=== PATIENT | female | born 1985 | race Caucasian/White ===

== ENCOUNTER → 2016-09-24 | Outpatient (CLI) | payer MEDICAID ==
[~2016-09-24] MED LIST: CALC500T7 PO; CEPH500C; CEPH500C PO; DCS100C PO; HSCO125 SL; IBP800T PO; KETO10TA PO; METR500T21 PO; NAPR-243 PO; NITR-65 PO; ONDA4TAB8 PO; ONDA8TAB13 PO; ONDAN4ODT SL; OXYC1TAB12 PO; PREN1TAB25 PO; TAMS0.4C98 PO
--- NOTE | 2016-09-24 14:52 | Diagnostic Imaging Report ---
PROCEDURE: US PELVIC (NON OB) TECHNIQUE: Multiple real-time grayscale images were obtained over the pelvis in various projections transabdominally. IMPRESSION: Pelvic pain. FINDINGS: The previous pelvic ultrasound exam performed on 01/18/2016 noted that the endometrial lining was thickened and there were two anechoic sacs within the endometrial canal. The possibly that this was related to an early gestational sac was raised. On this exam, the uterus is nongravid, anteverted, and prominent measuring 9.3 x 8.0 x 4.1 cm. The endometrial lining is thickened measuring 12 mm (normal 5 mm or less). This finding is nonspecific, however. Correlation with the patient's menstrual cycle will be recommended. Both ovaries are identified. There is a 2.1 x 2.1 x 1.8 cm simple cyst arising from the left ovary. The right ovary is generally unremarkable. There is no solid pelvic mass or free fluid collection noted. IMPRESSION: 1. The uterus is prominent but nongravid. The endometrial lining is thickened, but this finding is nonspecific. Recommendations as above. 2. There is a 2.1 x 2.1 cm simple cyst associated with the left ovary. There is no acute pelvic abnormality noted otherwise. Dictated by: Dictated on workstation # [id number]
== END ==
LOC: RAD 11:19
PROVIDERS: ATTEND Obstetrics & Gynecology
DX: N83.202 Unspecified ovarian cyst, left side (principal); R10.2 Pelvic and perineal pain
CPT/HCPCS: 76856

== ENCOUNTER 2016-10-02 08:19 | Emergency (ER) | payer MEDICAID ==
[~2016-10-02] VITALS: Ht 149.9 cm; Wt 40.8 kg
--- NOTE | 2016-10-02 08:56 | ED Neck-Back Pain/Injury ---
General Chief Complaint: Head/Cervical Problems Stated Complaint: RT SIDE NECK PAIN Nursing Triage Note: PT STATES RT SIDE NECK PAIN OF UNKNOWN CAUSE THAT STARTED 3 DAYS AGO. Nursing Sepsis Screen: No Definite Risk Source of Information: Patient, Family Exam Limitations: No Limitations History of Present Illness Time Seen by Provider: 08:51 Initial Comments This 30-year-old white female presents with a complaint of right-sided neck and shoulder pain that has been present for the last 2 days. The patient denies any remote or recent injury to her head neck or right shoulder. Patient's pain is sharp in nature severe in intensity and located primarily over the right paracervical and supraspinatus area. There is no associated radiation of the pain. There is no numbness or tingling in the right arm. The patient denies associated chest pain, shortness of breath, cough, hemoptysis, palpitations, nausea vomiting or diarrhea. Patient states pain is made worse by head neck or right shoulder movement. Patient does not want a trigger injection. She does not want injectable pain medications. The patient has severe anxiety and had a specific request for the medicines that she knew she can take without difficulty which included hydrocodone and Flexeril and ibuprofen. Allergies and Home Medications Allergies Coded Allergies: NKANo Known Allergies (Verified Allergy, Unknown, 04/09/06) Home Medications Ketorolac Tromethamine 10 Mg Tablet, 10 MG PO Q6H, #15 Prescribed by: LEILANI REID on 11/14/15106 Metronidazole 500 Mg Tablet, 500 MG PO BID, #14 Prescribed by: ELISSA MCDANIEL on 01/18/16 1546 Nitrofurantoin Monohyd/M-Cryst 100 Mg Capsule, 100 MG PO BID, #20 Prescribed by: LEILANI REID on 11/14/15106 Ondansetron 4 Mg Tab.rapdis, 4 MG PO Q4H, #10 Prescribed by: LEILANI REID on 11/14/15106 Tamsulosin HCl 0.4 Mg Cap, 0.4 MG PO DAILY, #10 Prescribed by: LEILANI REID on 11/14/15106 Constitutional: No chills, No fever EENTM: No ear pain, No vision loss Respiratory: No cough Cardiovascular: No chest pain Gastrointestinal: No abdominal pain, No diarrhea, No nausea, No vomiting Genitourinary: No dysuria, No frequency Musculoskeletal: see HPI, No back pain, muscle pain (over the right trapezius area.), neck pain Skin: No rash Psychiatric/Neurological: Anxiety Past Edrgvww-Hbqvox-Hhcxiu Hx Patient Social History Alcohol Use: Denies Use Recreational Drug Use: No Smoking Status: Current Someday Smoker Type Used: Cigarettes Recent Foreign Travel: No Contact w/Someone Who Travel: No Recent Infectious Disease Expo: No Recent Hopitalizations: No Immunizations Up To Date Tetanus Booster (TDap): More than 5yrs Seasonal Allergies Seasonal Allergies: Yes Surgeries History of Surgeries: Yes ( X 2) Surgeries: Section Respiratory History of Respiratory Disorde: No Cardiovascular History of Cardiac Disorders: Yes (PALPATATIONS) Neurological History of Neurological Disord: No Reproductive System : No Last Menstrual Period: Sep 11, 2016 Hx Reproductive Disorders: No Sexually Transmitted Disease: No HIV/AIDS: No Female Reproductive Disorders: Denies Genitourinary History of Genitourinary Disor: No Gastrointestinal History of Gastrointestinal Di: No Musculoskeletal History of Musculoskeletal Dis: No Endocrine History of Endocrine Disorders: No HEENT History of HEENT Disorders: No Cancer History of Cancer: No Psychosocial History of Psychiatric Problem: Yes Behavioral Health Disorders: Anxiety Integumentary History of Skin or Integumenta: No Blood Transfusions History of Blood Disorders: No Reviewed Nursing Assessment Reviewed/Agree w Nursing PMH: Yes Family Medical History Significant Family History: No Pertinent Family Hx Family Medial History: Alcoholism 19 MOTHER G8 SISTER Arthritis 19 MOTHER Drug abuse 19 MOTHER G8 SISTER No Family History of: AIDS Alzheimer's disease Asthma Cancer of mouth Cardiovascular disease Cataracts Colon cancer Completed stroke Diabetes mellitus Dysphasia Glaucoma Hypertension Kidney disease Myocardial infarction Osteoporosis Parkinson's disease Prostate cancer Psychosocial problem Respiratory disorder Seizure disorder Severe allergy Thyroid disease Tuberculosis Visual disorder Physical Exam Vital Signs Vital Sign - Last 12Hours 10/02/16 08:29 Temp 98.5 Pulse 82 Resp 20 B/P (MAP) 116/81 Pulse Ox 100 O2 Delivery Room Air Capillary Refill : Less Than 3 Seconds General Appearance: Cachetic, Mild Distress HEENT: Normal ENT Inspection Neck: Normal Inspection Cardiovascular: Regular Rate, Rhythm, No Murmur Respiratory: Chest Non Tender, Lungs Clear, Normal Breath Sounds Gastrointestinal: Normal Bowel Sounds Back: Normal Inspection Extremity: Normal Capillary Refill, Normal Range of Motion (other than to the right shoulder from the myalgias and muscle spasm.), Other (there is tenderness to palpation over the right trapezius area suggestive of a trigger point. Movement of the head neck and right shoulder exacerbate the pain.) Neurologic/Psychiatric: Alert, Oriented x3, No Motor/Sensory Deficits Skin: Normal Color, Warm/Dry Progress/Results/Core Measures Results/Orders My Orders Orders - RICKI JACOBS MD Shoulder, Right, 2 Views (10/02/16 08:48) Hydrocodone/Apap 5/325 Tablet (Lortab 5 (10/02/16 09:00) Cyclobenzaprine Tablet (Flexeril Tablet) (10/02/16 09:00) Ibuprofen Tablet (Motrin Tablet) (10/02/16 09:00) Cervical Spine 3 Views Or Less (10/02/16 08:48) Medications Given in ED Current Medications Medications Dose Ordered Sig/Guerrero Route Start Time Stop Time Status Last Admin Dose Admin Acetaminophen/ Hydrocodone Bitart 2 tab ONCE ONCE PO 10/02/16 09:00 10/02/16 09:01 DC 10/02/16 09:20 1 TAB Ibuprofen 600 mg ONCE ONCE PO 10/02/16 09:00 10/02/16 09:01 DC 10/02/16 09:20 600 MG Vital Signs/I&O Vital Sign - Last 12Hours 10/02/16 08:29 Temp 98.5 Pulse 82 Resp 20 B/P (MAP) 116/81 Pulse Ox 100 O2 Delivery Room Air Blood Pressure Mean: 93 Progress Note : Time: 11:23 Progress Note The patient's x-rays of the cervical spine and right shoulder were unremarkable. Patient was significantly improved with hydrocodone and ibuprofen orally. I discussed findings with the patient who will use hydrocodone, ibuprofen, and Flexeril at home. I recommended rest moist heat and an pjil-wdf-qoayflr electric stimulator for supplemental treatment. I recommended that she follow up with her primary care provider on Wednesday. She was invited to return to the emergency department if she having further problems. Departure Impression Impression: Primary Impression: Neck pain Disposition: HOME, SELF-CARE Condition: Improved Departure-Patient Inst. Decision time for Depature: 11:25 Referrals: NADINE OCHOA DO (PCP/Family) Primary Care Physician Patient Instructions: Generalized Neck Pain (DC) Add. Discharge Instructions: Flexeril, ibuprofen, and Vicodin as prescribed. Moist heat and/or ice to the neck area. Jvsu-pbx-kpjevnn electric stimulator to the right shoulder area. Close follow-up at [facility] on Wednesday. Return if any problems. All discharge instructions reviewed with patient and/or family. Voiced understanding. RICKI JACOBS MD Oct 02, 2016 08:56
[2016-10-02] MEDS: IBUPROFEN 600 MG (MOTRIN) TAB PO ONE (09:20)
[2016-10-02] MEDS: CYCLOBENZAPRINE 10 MG (FLEXERIL) TAB PO SCH (09:20)
[2016-10-02] MEDS: HYDROcodone/APAP 5 MG/325 MG (LORTAB) TAB PO ONE (09:20)
--- NOTE | 2016-10-02 10:12 | Diagnostic Imaging Report ---
INDICATION: Right shoulder pain AP internal and external rotated views of the right shoulder are obtained. No fracture or dislocation is seen. There is no acute bony abnormality. IMPRESSION: Negative right shoulder. Dictated by: Dictated on workstation # [id number]
--- NOTE | 2016-10-02 10:21 | Diagnostic Imaging Report ---
Indication: Right-sided neck pain radiating to the right shoulder and arm. Discussion: Four views of the cervical spine were obtained. Intervertebral disc spaces are well-maintained. No significant facet arthropathy. Alignment is anatomic. Paraspinal soft tissues are unremarkable. Impression: 1. Negative cervical spine. Dictated by: Dictated on workstation # [id number]
[2016-10-02 11:39] VITALS: BP 112/80
== END 2016-10-02 11:38 | disposition home or self-care (01) ==
LOC: EDUNIT# 08:19 → ER 08:21
DX: M54.2 Cervicalgia (principal); F41.9 Anxiety disorder, unspecified; F17.210 Nicotine dependence, cigarettes, uncomplicated; Z87.59 Personal history of other complications of pregnancy, childbirth and the puerperium
CPT/HCPCS: 72040; 73030; 99283

== ENCOUNTER 2018-11-08 17:45 | Emergency (ER) | payer SELFPAY ==
[~2018-11-08] VITALS: Ht 149 cm; Wt 40.0 kg
[~2018-11-08 17:45] MED LIST changes: +AMOX-358 PO; +METR-145 PO; -METR500T21 PO; +NAPR-1071 PO
[2018-11-08] MEDS ORDERED: TRAM-42 PO (18:05)
--- NOTE | 2018-11-08 18:05 | ED EENT ---
History of Present Illness General Chief Complaint: Dental Problems/Pain Stated Complaint: TOOTHACHE Nursing Triage Note: THE PT IS AMBULATORY TO THE ROOM WITHOUT DIFFICULTY. NO DISTRESS IS SEEN ON ARRIVAL. LOC IS NORMAL FOR THE PT. Source: patient Exam Limitations: no limitations History of Present Illness Date Seen by Provider: Nov 08, 2018 Time Seen by Provider: 18:01 Initial Comments To ER with left lower dental pain for the past 4 years worse for the past few days. She is about 8 or 9 weeks , was seen by [facility] and started on Augmentin yesterday. She took 2 doses yesterday and 1 today, denies much improvement. She's been taking Tylenol and ibuprofen without much relief. Timing/Duration: other Severity: moderate Location: dental Prearrival Treatment: no prearrival treatment Associated Symptoms: denies symptoms Allergies and Home Medications Allergies Coded Allergies: KIERANANo Known Allergies (Verified Allergy, Unknown, 04/09/06) Home Medications Amoxicillin/Potassium Clav 1 Each Tablet, 1 EACH PO BID Prescribed by: BRIANNA RAMOS on 06/24/171716 Ketorolac Tromethamine 10 Mg Tablet, 10 MG PO Q6H Prescribed by: LEILANI REID on 11/14/15106 Metronidazole 500 Mg Tablet, 500 MG PO BID Prescribed by: ELISSA MCDANIEL on 01/18/16 154 Naproxen 500 Mg Tablet, 500 MG PO BID PRN PRN for PAIN-MODERATE Prescribed by: BRIANNA RAMOS on 06/24/171716 Nitrofurantoin Monohyd/M-Cryst 100 Mg Capsule, 100 MG PO BID Prescribed by: LEILANI REID on 11/14/15106 Ondansetron 4 Mg Tab.rapdis, 4 MG PO Q4H Prescribed by: LEILANI REID on 11/14/15106 Tamsulosin HCl 0.4 Mg Cap, 0.4 MG PO DAILY Prescribed by: LEILANI REID on 11/14/15106 Patient Home Medication List Home Medication List Reviewed: Yes Review of Systems Review of Systems Constitutional: see HPI Eyes: No Symptoms Reported Ears: No Symptoms Reported Nose: no symptoms reported Mouth: see HPI, pain; denies swelling Throat: no symptoms reported Respiratory: no symptoms reported Cardiovascular: no symptoms reported Musculoskeletal: no symptoms reported Skin: no symptoms reported Neurological: No Symptoms Reported Hematologic/Lymphatic: No Symptoms Reported Immunological/Allergic: no symptoms reported Past Wiolese-Lxunkx-Hktqqx Hx Patient Social History Type Used: Cigarettes 2nd Hand Smoke Exposure: No Recent Foreign Travel: No Contact w/Someone Who Travel: No Recent Infectious Disease Expo: No Recent Hopitalizations: No Physical Abuse: No Sexual Abuse: No Mistreated: No Fear: No Immunizations Up To Date Tetanus Booster (TDap): More than 5yrs Seasonal Allergies Seasonal Allergies: No Past Medical History Surgeries: No Section Respiratory: No Cardiac: Yes (PALPATATIONS) Neurological: No Reproductive Disorders: No Female Reproductive Disorders: Denies Sexually Transmitted Disease: No HIV/AIDS: No Genitourinary: No Gastrointestinal: No Musculoskeletal: No Endocrine: No HEENT: No Cancer: No Psychosocial: Yes Anxiety Integumentary: No Blood Disorders: No Family Medical History Alcoholism 19 MOTHER G8 SISTER Arthritis 19 MOTHER Drug abuse 19 MOTHER G8 SISTER No Family History of: AIDS Alzheimer's disease Asthma Cancer of mouth Cardiovascular disease Cataracts Colon cancer Completed stroke Diabetes mellitus Dysphasia Glaucoma Hypertension Kidney disease Myocardial infarction Osteoporosis Parkinson's disease Prostate cancer Psychosocial problem Respiratory disorder Seizure disorder Severe allergy Thyroid disease Tuberculosis Visual disorder No Pertinent Family Hx Physical Exam Vital Signs Vital Signs - First Documented 11/08/18 17:55 Temp 36.8 Pulse 80 Resp 14 B/P (MAP) 123/83 (96) Height, Weight, BMI Height: 5'0" Weight: 100lbs. oz. [id number]; 18.00 BMI Method:Estimated General Appearance: WD/WN, no apparent distress Eyes: bilateral eye normal inspection, bilateral eye PERRL, bilateral eye EOMI Nose: normal inspection, active bleeding Mouth/Throat: other (the tooth in question is carious and fractured. There is n o surrounding fluctuance to suggest a drainable abscess no mandibular or maxillary swelling.) Neck: non-tender Respiratory: no respiratory distress, no accessory muscle use Gastrointestinal: normal bowel sounds, non tender Neurologic/Psychiatric: alert, normal mood/affect, oriented x 3 Progress/Results/Core Measures Results/Orders My Orders Orders - BRIANNA RAMOS APRN Tramadol Tablet (Ultram Tablet) (11/08/18 18:00) Vital Signs/I&O 11/08/18 17:55 Temp 36.8 Pulse 80 Resp 14 B/P (MAP) 123/83 (96) Blood Pressure Mean: 96 Departure Communication (Admissions) That she is allergic to codeine, doesn't want hydrocodone, has taken Tylenol and ibuprofen without much relief, offered her a inferior alveolar nerve block which she declined, no seizure history so I'll give a couple of Ultram. She has the Augmentin with her Impression Primary Impression: Dental caries Disposition: HOME, SELF-CARE Condition: Stable Departure-Patient Inst. Decision time for Depature: 18:04 Referrals: NO,LOCAL PHYSICIAN (PCP) Primary Care Physician NADINE OCHOA DO (Family) Primary Care Physician Patient Instructions: Dental Pain (DC) Add. Discharge Instructions: 1. Continue the Augmentin, this is a very good antibiotic better than amoxicillin or penicillin alone. Pain medication as directed follow-up with your dentist ERIC All discharge instructions reviewed with patient and/or family. Voiced understanding. Scripts Tramadol HCl (Ultram) 50 Mg Tablet 50 MG PO Q6H PRN for PAIN-SEVERE, #10 TAB Prov: BRIANNA RAMOS APRN 11/08/18 BRIANNA RAMOS APRN Nov 08, 2018 18:05
[2018-11-08 18:14] VITALS: BP 123/83
[2018-11-08] MEDS ORDERED: LIDOCAINE 2% VISCOUS 15 ML UDC MM ONE (18:15)
== END 2018-11-08 18:18 | disposition home or self-care (01) ==
LOC: EDUNIT# 17:45 → ER 17:47
DX: K02.9 Dental caries, unspecified (principal); F41.9 Anxiety disorder, unspecified
CPT/HCPCS: 99283

== ENCOUNTER → 2019-01-30 | Outpatient (CLI) | payer MEDICAID ==
[~2019-01-30] MED LIST changes: +TRAM-42 PO
--- NOTE | 2019-01-30 13:43 | Diagnostic Imaging Report ---
INDICATION: survey. TECHNIQUE: Multiple real-time grayscale images were obtained over the gravid uterus. COMPARISON: None FINDINGS: There is a single living intrauterine in breech presentation. There is normal volume in the axilla. Placenta is anterior. There is no previa. Anatomical survey is unremarkable. This includes a four-chamber heart and three-vessel cord. Heart rate is 132 bpm. Biometrical measurements are as follows: Biparietal 5.25 cm, age 22 weeks 0 days. Head circumference 19.39 cm, age 21 weeks 5 days. Abdominal circumference 14.98 cm, age 20 weeks 2 days. Femur length 3.34 cm, age 20 weeks 4 days. Sonographic estimate age: 21 weeks 1 days. Sonographic estimated date of delivery: 06/11/2019. Estimated Weight: 359 gm (+/- 52 gm). LMP percentile: 16%. heart rate: 132 beats per minute. number: 1 of 1. IMPRESSION: Single living intrauterine with sonographically estimated gestational age of 21 weeks 1 day and estimated date of confinement of June 11, 2019. Dictated by: Dictated on workstation # [id number]
== END ==
LOC: RAD 10:03
PROVIDERS: ATTEND Nurse Practitioner Women's Health
DX: Z36.89 Encounter for other specified antenatal screening (principal); Z3A.21 21 weeks gestation of pregnancy
CPT/HCPCS: 76805

== ENCOUNTER 2019-04-04 18:29 | Outpatient (CLI) | payer MEDICAID ==
[~2019-04-04] VITALS: Ht 149.9 cm; Wt 53.0 kg
[~2019-04-04 18:29] MED LIST changes: -TAMS0.4C98 PO; +TMSL.4C PO
--- NOTE | 2019-04-04 18:35 | NUR ---
MATTEO RANDALL presented to unit via from ED, accompanied by s/o, with c/o CONTRACTIONS. MATTEO RANDALL weighed, gowned, voided, and to bed. EFHM and TOCO applied, VS taken. MATTEO RANDALL oriented to bed controls, call light, TV, heat, and A/C controls.
[2019-04-04 18:57] VITALS: BP 117/69
[2019-04-04 18:57] LABS: BILIRUBIN,URINE NEGATIVE (NEGATIVE); CLARITY,URINE CLEAR; COLOR,URINE YELLOW; GLUCOSE, URINE (UA) NEGATIVE (NEGATIVE); KETONES,URINE NEGATIVE (NEGATIVE); LEUKOCYTE ESTERASE ,URINE 1+ (NEGATIVE); NITRITE,URINE NEGATIVE (NEGATIVE); PROTEIN,URINE NEGATIVE (NEGATIVE)
[2019-04-04 19:09] LABS: BACTERIA,URINE FEW /HPF; SQUAMOUS EPITHELIAL CELL,UR RARE /HPF; WBC,URINE RARE /HPF
[2019-04-04] MEDS ORDERED: PREN-142 PO (19:20)
[2019-04-04] MEDS ORDERED: FERR-84 PO (19:20)
[2019-04-04 19:25] VITALS: BP 100/63
--- NOTE | 2019-04-04 19:35 | NUR ---
dr. louie called regarding pt's arrival and complaints and SVE. New orders received for iv fluids and terb. Pt ctx's palpate mild and pt is able to talk and text through ctx's.
--- NOTE | 2019-04-04 19:44 | NUR ---
Discussed plan of care with pt and friend. pt states has high anxiety and does not want a shot or iv. pt states she is "freaking out" thinking about it and would rather go home and hydrate and see dr. stock tomorrow at scheduled appointment. RN discussed the reasoning of iv fluids and terb. Rn also discussed the risk of labor if pt would cont to contract. Pt verbalized understanding but refuses the ivfluids and terb. Dr. louie called and made aware, pt to sign out AMA.
[2019-04-04] MEDS ORDERED: LACTATED RINGERS 1,000 ML IV SCH (19:45)
[2019-04-04] MEDS ORDERED: TERBUTALINE INJ 1 MG/ML (BRETHINE) AMP SC ONE (19:45)
--- NOTE | 2019-04-04 19:48 | NUR ---
pt sitting up on side of bed. Pt dc'd from external monitors.
--- NOTE | 2019-04-04 19:50 | NUR ---
AMA paper discussed with pt and pt signed and understands.
[2019-04-04 19:55] VITALS: BP 100/63
--- NOTE | 2019-04-04 19:55 | NUR ---
Pt ambulated off unit.
== END 2019-04-04 19:55 | disposition left against medical advice (07) ==
LOC: WSo 18:29 → LDRP 18:30 → WSo 19:55
PROVIDERS: ATTEND Obstetrics & Gynecology
DX: O60.00 Preterm labor without delivery, unspecified trimester (principal); Z3A.00 Weeks of gestation of pregnancy not specified
CPT/HCPCS: 81000; 87088; 99213

== ENCOUNTER 2019-05-12 04:02 | Outpatient (CLI) | payer MEDICAID ==
[~2019-05-12] VITALS: Ht 149.9 cm; Wt 56.2 kg
[~2019-05-12 04:02] MED LIST changes: +FERR-84 PO; +PREN-142 PO
--- NOTE | 2019-05-12 04:05 | NUR ---
MATTEO RANDALL presented to unit via AMBULATION from HOME/ED, accompanied by SO, with c/o CONTRACTIONS. MATTEO RANDALL weighed, gowned, voided, and to bed. EFHM and TOCO applied, VS taken. MATTEO RANDALL oriented to bed controls, call light, TV, heat, and A/C controls.
[2019-05-12 04:17] VITALS: BP 123/77
[2019-05-12 04:19] VITALS: BP 123/77
[2019-05-12 04:51] LABS: BILIRUBIN,URINE NEGATIVE (NEGATIVE); CLARITY,URINE CLEAR; COLOR,URINE YELLOW; GLUCOSE, URINE (UA) NEGATIVE (NEGATIVE); KETONES,URINE NEGATIVE (NEGATIVE); LEUKOCYTE ESTERASE ,URINE NEGATIVE (NEGATIVE); NITRITE,URINE NEGATIVE (NEGATIVE); PROTEIN,URINE NEGATIVE (NEGATIVE)
[2019-05-12 04:58] LABS: BACTERIA,URINE NEGATIVE /HPF; SQUAMOUS EPITHELIAL CELL,UR RARE /HPF
--- NOTE | 2019-05-12 05:28 | NUR ---
Dr. Chappell called with update of SVE and UA results. orders pt to be drinking water because pt has already refused an IV. Dr informed that pt is still sandeep every 3-4minutes. states that we will keep her until Dr. Chirinos comes in to take over on her care.
[2019-05-12 05:44] VITALS: BP 109/69
--- NOTE | 2019-05-12 06:29 | NUR ---
Nurse at pt bedside. Pt. has drank approximately 250ml of water. Pt encouraged to continue drinking. Pt states that she feels as if her contractions are slowing down some.
--- NOTE | 2019-05-12 07:30 | NUR ---
DISCHARGE PAPERS PROVIDED AND REVIEWED WITH PT; PT VERBALIZES UNDERSTANDING AND DENIES ANY NEEDS AT THIS TIME. QUESTIONS ANSWERED. PAPER SIGNED.
--- NOTE | 2019-05-12 07:32 | NUR ---
PT DISCHARGED FROM [facility] TO [facility] VIA AMBULATORY IN STABLE CONDITION ACC BY S/O.
--- NOTE | 2019-05-15 08:14 | Physician Query-Final Dx ---
OLGA BUSTOS 05/15/19 0814: Clinic Account Progress/Dx Physician Query: Please give diagnosis Please include # weeks gestation Date of Service May 12, 2019 at 04:02 NADINE OCHOA DO 05/15/19 1027: Clinic Account Progress/Dx DIAGNOSIS: Diagnosis 35 week IUP Previous Irregular contractions OLGA BUSTOS May 15, 2019 08:14 NADINE OCHOA DO May 15, 2019 10:27
== END 2019-05-12 07:32 | disposition home or self-care (01) ==
LOC: WSo 04:02 → LDRP 04:03 → WSo 07:32
PROVIDERS: ATTEND Obstetrics & Gynecology
DX: O62.0 Primary inadequate contractions (principal); O34.211 Maternal care for low transverse scar from previous cesarean delivery; Z3A.35 35 weeks gestation of pregnancy
CPT/HCPCS: 81000; 87088; 99213

== ENCOUNTER 2019-05-29 06:58 | Outpatient (CLI) | payer MEDICAID ==
[~2019-05-29] VITALS: Ht 149 cm; Wt 56.0 kg
== END 2019-05-29 11:02 ==
LOC: PREOP 06:58
PROVIDERS: ATTEND Obstetrics & Gynecology
DX: Z01.818 Encounter for other preprocedural examination (principal)

== ENCOUNTER 2019-06-05 06:28 | Inpatient (IN) | payer MEDICAID ==
[2019-06-05] VITALS (10 sets, daily range): BP systolic 89–119; BP diastolic 60–81
[~2019-06-05 06:28] MED LIST changes: +CITRIC ACID/SOB CIT (BICITRA) 30 ML UDC ONE; +FAMOTIDINE 20MG/2ML IV (PEPCID) ONE; +METOCLOPRAMIDE INJ 10 MG/2 ML (REGLAN) ONE; +ceFAZolin 2 GM IV Premixed 0 ML ONE
--- NOTE | 2019-06-05 06:35 | NUR ---
MATTEO RANDALL presented to unit via ambulation from ED, accompanied by s.o., for repeat section. MATTEO RANDALL weighed, gowned, voided, and to bed. EFHM and TOCO applied, VS taken. MATTEO RANDALL oriented to bed controls, call light, TV, heat, and A/C controls.
[2019-06-05] MEDS ORDERED: D5 LR IV SOLUTION 1,000 ML IV SCH (06:36)
[2019-06-05] MEDS ORDERED: LACTATED RINGERS 1,000 ML IV SCH (06:45)
[2019-06-05] MEDS ORDERED: FAMOTIDINE 20MG/2ML IV (PEPCID) IVP ONE (06:45)
[2019-06-05] MEDS ORDERED: ceFAZolin INJECTION 1,000 MG in WATER (STERILE) FOR INJECTION 10 ML IV ONE (06:45)
[2019-06-05] MEDS ORDERED: CITRIC ACID/SOB CIT (BICITRA) 30 ML UDC PO ONE (06:45)
[2019-06-05] MEDS ORDERED: CATHETER FLUSH 10 ML SYR IV PRN (06:45)
[2019-06-05] MEDS ORDERED: METOCLOPRAMIDE INJ 10 MG/2 ML (REGLAN) IV ONE (06:45)
--- NOTE | 2019-06-05 07:10 | History & Physical-OB ---
OB - Chief Complaint & HPI Date/Time Date of Admission: Date of Admission: Jun 05, 2019 at 06:28 Date seen by a Provider: Jun 05, 2019 Time Seen by a Provider: 07:08 Chief Complaint/History OB-Reason for Admission/Chief: Section Hx : 5 Hx Para: 3 Expected Date of Delivery: June 11, 2019 Gestational Age in Weeks: 39 Gestational Age in Days: 1 Indication for : desires repeat Admission Nurse Assessment Rev: Yes Allergies and Home Medications Allergies Coded Allergies: No Known Drug Allergies (Unverified , 05/29/19) Home Medications Ferrous Sulfate 325 Mg Tablet, 325 MG PO DAILY, (Reported) Vit No.124/Iron/FA 1 Each Tablet, 1 EACH PO DAILY, (Reported) Patient Home Medication List Home Medication List Reviewed: Yes OB - History Hx of Present Care: Yes Ultrasounds: Normal mid trimester US Obstetrical Complications: None Medical Complications: None Obstetrical History Hx Termination: No Hx Multiple Gestation: No Hx Stillbirth: No Hx Complication: No Hx Induced Hypertens: No Hx Maternal Gestational Diabet: No Delivery History Hx Dystocia: No Hx Large For Gestational Age I: No Hx Small for Gestational Age I: No Hx Section: Yes Hx Vaginal Delivery Post C-Sec: No Hx Blood Disorders: No Adverse Rxn to Tranfusion: No (N/A) Patient Past Medical History n/a Social History/Family History HIV/AIDS: No Recent Infectious Disease Expo: No Sexually Transmitted Disease: No Alcohol Use: Denies Use Recreational Drug Use: No 2nd Hand Smoke Exposure: No Immunizations Tetanus Booster (TDap): More than 5yrs OB - Admission Exam Physical Exam HEENT: NCAT Heart: Rhythm Normal Lungs: Clear Abdomen: Gravid Extremities: Normal Reflexes: Normal Heart Rate: 130's Accelerations: Accelerations Present Decelerations: No Decelerations Short Term Variability: Present Fci Variability: Average (6-25) Contractions on Admission: >10 Minutes Apart Intensity: Mild OB - Assessment/Plan/Diagnosis Assessment Assessment: section Admission Dx 33 yo @ 39.1 Previous Admission Status: Inpatient Order (span 2 midnights) Reason for Inpatient Admission: Repeat Plan Plan: Section NADINE OCHOA DO Jun 05, 2019 07:10
[2019-06-05] MEDS ORDERED: OXYTOCIN PRE-MIX DRIP 1,000 ML IV ONE (07:11)
[2019-06-05] MEDS ORDERED: fentaNYL INJECTION 100 MCG/2 ML AMP ONE (07:12)
[2019-06-05] MEDS ORDERED: DCS100C PO (07:14)
[2019-06-05] MEDS ORDERED: HYDR-4226 PO (07:14)
[2019-06-05] MEDS ORDERED: IBUP-844 PO (07:14)
[2019-06-05] MEDS ORDERED: KETOROLAC 30 MG/ML VIAL IV SCH (07:15)
[2019-06-05] MEDS ORDERED: TETANUS,DIPTH,PERTUSS P/F (BOOSTRIX) 0.5 ML VIAL IM SCH (07:15)
[2019-06-05] MEDS ORDERED: MEASLES,MUMPS,RUBELLA 1 EA INJ SC SCH (07:15)
[2019-06-05] MEDS ORDERED: ONDANSETRON 4 MG/2 ML (SDV) Z0FRAN IVP PRN (07:15)
--- NOTE | 2019-06-05 07:15 | Discharge Inst-Women's Service ---
Discharge Inst-Women's Serv Depart Medication/Instructions New, Converted or Re-Newed RX: RX on Chart Final Diagnosis POD 2 RLTCS Problems Reviewed?: Yes Consults/Follow Up Additional Follow Up: Yes Orders/Referrals Dr. Chirinos in 7-10 days and in 6 weeks Activity Activity: Activity as Tolerated Driving Instructions: No Driving for 1 Week NO SMOKING: NO SMOKING Nothing Inside Vagina: No Douching, No [place], No Tampons Diet Discharge Diet: No Restrictions Symptoms to Report to : Bleeding Excessive, Pain Increased, Fever Over 101 Degrees F, Vaginal Bleeding Increase, Questions/Concerns For Any Problems or Questions: Contact Your Physician Skin/Wound Care Infection Signs and Symptoms: Increased Redness, Foul Odor of Wound, Increased Drainage, Skin Itchy or Has a Rash, Increased Swelling, Temperature Above 101 F Operative Area Clean and Dry: Keep Incision Clean/Dry Stitches/Darrow/Dermabond: Dermabond, Care of Stitches Bathing Instructions: NADINE Singh DO Jun 05, 2019 07:15
[2019-06-05 07:17] LABS: BASOPHILS % (AUTO) 0 % (0-10); EOSINOPHILS # (AUTO) 0.3 10^3/uL (0.0-0.3); EOSINOPHILS % (AUTO) 2 % (0-10); HEMATOCRIT 32 % (35-52); HEMOGLOBIN 10.8 G/DL (11.5-16.0); LYMPHOCYTES # (AUTO) 2.6 X 10^3 (1.0-4.0); LYMPHOCYTES % (AUTO) 18 % (12-44); MEAN CORPUSCULAR HEMOGLOBIN 30 PG (25-34); MEAN CORPUSCULAR HGB CONC 34 G/DL (32-36); MEAN CORPUSCULAR VOLUME 89 FL (80-99); MEAN PLATELET VOLUME 9.8 FL (7.4-10.4); MONOCYTES # (AUTO) 1.2 X 10^3 (0.0-1.0); MONOCYTES % (AUTO) 9 % (0-12); NEUTROPHILS # (AUTO) 10.2 X 10^3 (1.8-7.8); NEUTROPHILS % (AUTO) 71 % (42-75); PLATELET COUNT 304 10^3/uL (130-400); RED CELL DISTRIBUTION WIDTH 16.3 % (10.0-14.5); WHITE BLOOD COUNT 14.3 10^3/uL (4.3-11.0)
[2019-06-05] MEDS ORDERED: ONDANSETRON 4 MG/2 ML (SDV) Z0FRAN ONE (07:48)
[2019-06-05] MEDS ORDERED: PHENYLEPHRINE 100 MCG/ML 10 ML (ANESTHESIA) SYR ONE (07:48)
[2019-06-05] MEDS ORDERED: DEXAMETHASONE 10 MG/ML (DECADRON) 1 ML VIAL ONE (07:48)
[2019-06-05] MEDS ORDERED: BUPIVACAINE 0.25% 30 ML (SENSORCAINE) VIAL ONE (08:03)
[2019-06-05 08:08] LABS: SMEAR SCAN COMMENT YES
[2019-06-05] MEDS: OXYTOCIN PRE-MIX DRIP 500 ML IV SCH ×2 (08:15→19:39)
--- NOTE | 2019-06-05 09:15 | OPERATIVE REPORT ---
DATE OF SERVICE: PREOPERATIVE DIAGNOSES: 1. A 33-year-old G5, P3 at 39 weeks and one-day gestation. 2. Previous section. POSTOPERATIVE DIAGNOSES: 1. A 33-year-old G5, P3 at 39 weeks and one-day gestation. 2. Previous section. PROCEDURE: Repeat low transverse section. SURGEON: Marco A Ochoa DO EVENT AV OPERATOR: Coral Powell DNP, who was necessary for retraction and manipulation of the procedure. ANESTHESIA: Spinal. ESTIMATED BLOOD LOSS: 300 mL. URINE OUTPUT: 50 mL, clear at the end of the procedure. FLUIDS: 750 mL of lactated Ringer's solution. FINDINGS: A live male infant weighing 7 pounds 9 ounces, Apgars of 9 and 9. Grossly normal appearing uterus, bilateral fallopian tubes and ovaries. SPECIMEN SENT: None. INDICATIONS FOR PROCEDURE: This 33-year-old female is a patient who had sought care in my office. Her was uncomplicated with the exception of a repeat planned. We discussed this throughout her . All of her questions were answered, consent was obtained in the preoperative area after all of her questions were answered and reviewed once more. The patient was taken to the operating room. OPERATIVE REPORT IN DETAIL: Once in the operating room, spinal anesthesia was found to be adequate. She was placed in the supine position with leftward tilt, prepped and draped in a normal sterile fashion. A timeout was performed. Anesthesia was tested. A Pfannenstiel skin incision was then made through a previously existing scar using knife and carried down to the underlying layer of fascia using Bovie cautery. The superior aspect of the fascial incision was elevated and dissected off the underlying rectus muscles. The inferior aspect of the fascial incision was then grasped with Anabell clamps, tented up and dissected off the underlying rectus muscles. The rectus muscle was then dissected down the midline using Eddy scissors, which exposed the peritoneum, which I entered bluntly and extended using blunt traction. Jaquan ring retractor was placed in the peritoneal incision, which offers excellent lateral sidewall retraction. I then identified the lower uterine segment, which was found to be thinned out. I made a low transverse incision to the vesicouterine peritoneum and bluntly dissected off the lower uterine segment. I proceeded with my myotomy until membranes were visualized, at which point, I extended the uterine incision laterally and superiorly using bandage scissors. Amniotomy was then performed using an Allis clamp. Clear fluid was noted. The was found in vertex presentation. With gentle fundal pressure, the infant's head was elevated up the incision where it was delivered through the incision. Nares and oropharynx were bulb suctioned. Anterior and posterior shoulders were delivered and the was then brought to the operative field. The cord was doubly clamped and cut and infant was handed off to waiting nurses in attendance. Cord blood was collected, 3-vessel cord with intact placenta was delivered spontaneously thereafter. IV Pitocin was initiated to facilitate uterine contraction. Uterine fundus confirmed by manual massage. Uterus was then exteriorized and cleared of all endometrial clots and debris. I then proceeded with closing the uterine incision using 0 Vicryl suture in a running locked fashion. Second layer of imbricating 0 Monocryl was placed. Excellent hemostasis was noted after doing this. I then placed the uterus back in the pelvis and copiously irrigated the pelvis using normal saline. Once again, there was no active bleeding noted from any of my dissection planes. I placed Interceed antiadhesive over my low transverse incision and proceeded with closing the peritoneum after removing the Jaquan ring retractor. The peritoneum was reapproximated using 3-0 Vicryl suture in a running fashion. The rectus muscle reapproximated using 3-0 Vicryl suture in interrupted fashion. The fascia was reapproximated with 0 Vicryl suture in a running fashion. The subcutaneous tissue was very thin; therefore, it did not need to be reapproximated. The skin was reapproximated using 4-0 Monocryl in a running subcuticular. Dermabond was applied to incision and sterile dressing with adhesive white tape. The patient tolerated the procedure well and sent to the recovery area in stable condition. Lap and sponge counts were correct at the end of the procedure. Instrument counts correct as well. One gram of Ancef was given preoperatively for infection prophylaxis. Job ID: [id number] DocumentID: [id number] Dictated Date: 06/05/2019 08:52:25 V Belt Inspector Date: 06/05/2019 09:15:41 Dictated By: MARCO A OCHOA DO
[2019-06-05] MEDS: IBUPROFEN 600 MG (MOTRIN) TAB PO SCH ×3 (10:16→20:54)
[2019-06-05] MEDS: HYDROcodone/APAP 5 MG/325 MG (LORTAB) TAB PO PRN ×3 (10:37→23:31)
[2019-06-05] MEDS: METOCLOPRAMIDE 10 MG (REGLAN) TAB PO SCH ×2 (12:22→18:00)
[2019-06-05] MEDS ORDERED: CATHETER FLUSH 10 ML SYR IV SCH (14:00)
[2019-06-05] MEDS: DOCUSATE SODIUM 100 MG (COLACE) CAP PO SCH ×2 (19:39→20:54)
[2019-06-06] MEDS: METOCLOPRAMIDE 10 MG (REGLAN) TAB PO SCH ×4 (03:08→20:45)
[2019-06-06 03:14] VITALS: BP 108/71
[2019-06-06] MEDS: IBUPROFEN 600 MG (MOTRIN) TAB PO SCH ×4 (03:14→20:35)
[2019-06-06] MEDS: HYDROcodone/APAP 5 MG/325 MG (LORTAB) TAB PO PRN ×5 (05:19→23:27)
[2019-06-06 05:55] LABS: BASOPHILS % (AUTO) 0 % (0-10); EOSINOPHILS # (AUTO) 0.2 10^3/uL (0.0-0.3); EOSINOPHILS % (AUTO) 1 % (0-10); HEMATOCRIT 28 % (35-52); HEMOGLOBIN 9.2 G/DL (11.5-16.0); LYMPHOCYTES # (AUTO) 3.2 X 10^3 (1.0-4.0); LYMPHOCYTES % (AUTO) 15 % (12-44); MEAN CORPUSCULAR HEMOGLOBIN 30 PG (25-34); MEAN CORPUSCULAR HGB CONC 33 G/DL (32-36); MEAN CORPUSCULAR VOLUME 90 FL (80-99); MONOCYTES % (AUTO) 9 % (0-12); NEUTROPHILS # (AUTO) 15.7 X 10^3 (1.8-7.8); NEUTROPHILS % (AUTO) 75 % (42-75); PLATELET COUNT 262 10^3/uL (130-400); RED CELL DISTRIBUTION WIDTH 16.6 % (10.0-14.5); WHITE BLOOD COUNT 21.1 10^3/uL (4.3-11.0)
[2019-06-06 08:00] VITALS: BP 100/66
--- NOTE | 2019-06-06 08:00 | NUR ---
Pt using K-pad on neck - states she thinks it is hurting due to looking down to breast feed.
--- NOTE | 2019-06-06 08:02 | Postpartum Progress Note ---
Note Note Day # 1 Subjective: Patient is without complaints. Ambulating, voiding. Tolerating a regular diet without nausea or vomiting. Normal lochia. Pain is well controlled with oral pain medications. Objective: Physical Exam: General - Alert and oriented, no apparent distress Abdomen - Soft, appropriately tender to palpation, non-distended, fundus firm at umbilicus Extremities - no edema, negative Ilsa's bilaterally Incision- c/d/i Assessment: POD 1 RLTCS Acute blood loss anemia Plan: Routine care. Encourage breast feeding. Encourage ambulation. Ferrous sulfate supplementation. Plan for discharge today Vitals - Labs Vital Signs - I&O Vital Signs Date Time Temp Pulse Resp B/P (MAP) Pulse Ox O2 Delivery O2 Flow Rate FiO2 06/06/19 03:14 36.4 70 16 108/71 (83) 98 Room Air 06/05/19 23:31 37.0 71 18 105/61 (76) 97 Room Air 06/05/19 20:54 36.4 82 16 102/63 (76) 98 Room Air 06/05/19 15:55 36.7 76 16 105/60 (75) 96 Room Air 06/05/19 12:15 36.7 72 14 109/66 (80) 97 Room Air 06/05/19 09:35 36.8 12 99/63 (75) 99 Room Air 06/05/19 09:35 Room Air 06/05/19 09:20 36.5 19 111/66 (81) 100 Room Air 06/05/19 09:20 Room Air 06/05/19 09:05 36.8 20 89/61 (70) 100 Room Air 06/05/19 09:05 Room Air 06/05/19 08:50 Room Air 06/05/19 08:50 36.6 18 103/78 (86) 100 Room Air 06/05/19 08:35 Room Air 06/05/19 08:35 36.7 28 97/63 (74) 100 Room Air I & O 06/06/19 07:00 Intake Total 2110 ml Output Total 1250 ml Balance 860 ml Labs Laboratory Tests 06/06/19 05:05: White Blood Count 21.1H, Red Blood Count 3.08L, Hemoglobin 9.2L, Hematocrit 28L, Mean Corpuscular Volume 90, Mean Corpuscular Hemoglobin 30, Mean Corpuscular Hemoglobin Concent 33, Red Cell Distribution Width 16.6H, Platelet Count 262, Mean Platelet Volume 10.0, Neutrophils (%) (Auto) 75, Lymphocytes (%) (Auto) 15, Monocytes (%) (Auto) 9, Eosinophils (%) (Auto) 1, Basophils (%) (Auto) 0, Neutrophils # (Auto) 15.7H, Lymphocytes # (Auto) 3.2, Monocytes # (Auto) 2.0H, Eosinophils # (Auto) 0.2, Basophils # (Auto) 0.0 NADINE OCHOA DO Jun 06, 2019 08:02
[2019-06-06] MEDS: DOCUSATE SODIUM 100 MG (COLACE) CAP PO SCH ×2 (09:20→20:35)
--- NOTE | 2019-06-06 10:00 | NUR ---
Discussed need for MMR booster. Pt appeared anxious - instructed her to discuss with Dr Chirinos tomorrow.
[2019-06-06] MEDS ORDERED: IBUPROFEN 600 MG (MOTRIN) TAB PO SCH (12:00)
[2019-06-06 14:00] VITALS: BP 101/67
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
[2019-06-06 20:35] VITALS: BP 106/67
[2019-06-07] MEDS: METOCLOPRAMIDE 10 MG (REGLAN) TAB PO SCH ×2 (02:21→07:06)
[2019-06-07 02:35] VITALS: BP 112/75
[2019-06-07] MEDS: IBUPROFEN 600 MG (MOTRIN) TAB PO SCH ×2 (02:37→07:16)
[2019-06-07] MEDS: DOCUSATE SODIUM 100 MG (COLACE) CAP PO SCH (07:15)
[2019-06-07] MEDS: HYDROcodone/APAP 5 MG/325 MG (LORTAB) TAB PO PRN (07:16)
[2019-06-07 07:30] VITALS: BP 109/69
--- NOTE | 2019-06-07 08:02 | Postpartum Progress Note ---
Note Note Day # 2 Subjective: Patient is without complaints. Ambulating, voiding. Tolerating a regular diet without nausea or vomiting. Normal lochia. Pain is well controlled with oral pain medications. Objective: Physical Exam: General - Alert and oriented, no apparent distress Abdomen - Soft, appropriately tender to palpation, non-distended, fundus firm at umbilicus Extremities - no edema, negative Ilsa's bilaterally Incision- c/d/i Assessment: POD 2 RLTCS Plan: Routine care. Encourage breast feeding. Encourage ambulation. Ferrous sulfate supplementation. Plan for discharge today Vitals - Labs Vital Signs - I&O Vital Signs Date Time Temp Pulse Resp B/P (MAP) Pulse Ox O2 Delivery O2 Flow Rate FiO2 06/07/19 02:35 36.6 79 16 112/75 (87) 98 Room Air 06/06/19 20:35 36.6 71 16 106/67 (80) 97 Room Air 06/06/19 14:00 36.9 77 16 101/67 (78) 97 Room Air NADINE OCHOA DO Jun 07, 2019 08:02
--- NOTE | 2019-06-07 08:44 | Anesthesia-Regional Post-Op ---
Regional Patient Condition Mental Status: Alert, Oriented x3 Circulation: Same as Pre-Op Headache: Absent Sensation: Full Recovery Motor Block: Absent Post Op Complications Complications None Follow Up Care/Instructions Patient Instructions None needed. Anesthesia/Patient Condition Patient is doing well, no complaints, stable vital signs, no apparent adverse anesthesia problems. No complications reported per nursing. DENTON VIVAS CRNA Jun 07, 2019 08:44
--- NOTE | 2019-06-07 10:30 | NUR ---
MATTEO RANDALL demonstrates understanding of discharge instructions and accurately returns instructions upon questioning. Copy of Post-Discharge Instructions and Medication Discharge Instructions given to patient. MATTEO RANDALL is able to manage continuing needs after discharge. Patients belongings returned to patient. Skin dry and intact; no breakdown noted. Patient discharged from [facility]- on 06-07-19 at 1030. MATTEO RANDALL left floor via w/c, accompanied by staff.
== END 2019-06-07 10:30 | disposition home or self-care (01) | DRG 787 ==
LOC: LDRP 06:28
PROVIDERS: ADMIT Obstetrics & Gynecology; ATTEND Obstetrics & Gynecology
PROC: 10D00Z1 Extraction of Products of Conception, Low, Open Approach (ICD-10-PCS; principal; 2019-06-05 07:27)
DX: O34.211 Maternal care for low transverse scar from previous cesarean delivery (principal); O90.81 Anemia of the puerperium; D62 Acute posthemorrhagic anemia; Z37.0 Single live birth; Z3A.39 39 weeks gestation of pregnancy
CPT/HCPCS: 36415; 85025; 86850; 86900; 86901; 94664